=== PATIENT | female | born 1990 | race Caucasian/White ===

== ENCOUNTER → 2019-10-31 | Outpatient (CLI) | payer MEDICAID ==
--- NOTE | 2019-10-31 17:00 | Diagnostic Imaging Report ---
PROCEDURE: US OB SINGLE FETUS <14 WKS. TECHNIQUE: Multiple Real-time grayscale images were obtained over the gravid uterus in various projections. INDICATION: Encounter to determine viability of . COMPARISON: None available. FINDINGS: There is a gestational sac with normal morphology appropriately positioned in the uterus near the level of the fundus. There is small region of mixed echogenicity encompassing less than 10% of the superior gestational sac which could represent a very small perigestational hemorrhage/subchorionic hemorrhage. A yolk sac and embryo are both identified. Based on crown-rump length, the estimated gestational age is 9 weeks and 2 days. heart rate is 185 BPM. The right ovary is normal in appearance. The left ovary is not visualized due to surrounding bowel gas. No free pelvic fluid. IMPRESSION: Single live intrauterine with an average ultrasound age of 9 weeks 1 day. This is concordant with the LMP. Dictated by: Dictated on workstation # [id number]
== END ==
LOC: RAD 15:16
PROVIDERS: ATTEND Obstetrics & Gynecology
DX: O36.80X0 Pregnancy with inconclusive fetal viability, not applicable or unspecified (principal); Z3A.09 9 weeks gestation of pregnancy
CPT/HCPCS: 76801

== ENCOUNTER → 2020-01-17 | Outpatient (CLI) | payer MEDICAID ==
--- NOTE | 2020-01-17 13:41 | Diagnostic Imaging Report ---
INDICATION: survey. TECHNIQUE: Multiple real-time grayscale images were obtained over the gravid uterus. COMPARISON: 10/31/2019. FINDINGS: There is a single live fetus in a breech presentation. heart rate was recorded at 146 bpm. Placenta is posterior and fundal. Amniotic fluid index is 14.4 cm. Cervical length is 3.9 cm. survey demonstrates kidneys, bladder and stomach to be unremarkable. brain is unremarkable. There is a four-chamber heart. There is a three-vessel cord with normal insertion. spine is unremarkable. Biometrical measurements are as follows: Biparietal 4.76 cm, age 20 weeks 3 days. Head circumference 17.55 cm, age 20 weeks 1 days. Abdominal circumference 15.05 cm, age 20 weeks 3 days. Femur length 3.31 cm, age 20 weeks 3 days. Sonographic estimate age: 20 weeks 3 days. Sonographic estimated date of delivery: 06/02/2020. Estimated Weight: 345 gm (+/- 50 gm). LMP percentile: 38%. heart rate: 146 beats per minute. number: 1 of 1. IMPRESSION: Single live IUP 20-21 weeks gestational age showing normal interval growth when compared with prior exam. No complicating features are detected. Dictated by: Dictated on workstation # [id number]
== END ==
LOC: RAD 12:00
PROVIDERS: ATTEND Nurse Practitioner Women's Health
DX: Z34.92 Encounter for supervision of normal pregnancy, unspecified, second trimester (principal); Z3A.20 20 weeks gestation of pregnancy
CPT/HCPCS: 76805

== ENCOUNTER 2020-05-25 20:10 | Inpatient (IN) | payer MEDICAID ==
[~2020-05-25] VITALS: Ht 170.2 cm; Wt 62.0 kg
[2020-05-25] MEDS ORDERED: LIDOCAINE 1% INJ 20 ML 20 ML VIAL INJ PRN (20:30)
[2020-05-25] MEDS ORDERED: MINERAL OIL CONCENTRATE 99.9% 15 ML UDC TOP PRN (20:30)
[2020-05-25] MEDS ORDERED: D5 LR IV SOLUTION 1,000 ML IV ONE (21:07)
[2020-05-25 21:13] LABS: BASOPHILS % (AUTO) 0 % (0-10); EOSINOPHILS % (AUTO) 0 % (0-10); HEMATOCRIT 35 % (35-52); HEMOGLOBIN 11.9 g/dL (11.5-16.0); LYMPHOCYTES # (AUTO) 1.4 10^3/uL (1.0-4.0); LYMPHOCYTES % (AUTO) 12 % (12-44); MEAN CORPUSCULAR HEMOGLOBIN 30 pg (25-34); MEAN CORPUSCULAR HGB CONC 34 g/dL (32-36); MEAN CORPUSCULAR VOLUME 90 fL (80-99); MEAN PLATELET VOLUME 10.2 fL (9.0-12.2); MONOCYTES # (AUTO) 0.8 10^3/uL (0.0-1.0); MONOCYTES % (AUTO) 7 % (0-12); NEUTROPHILS # (AUTO) 9.7 10^3/uL (1.8-7.8); NEUTROPHILS % (AUTO) 81 % (42-75); PLATELET COUNT 192 10^3/uL (130-400)
[2020-05-25] MEDS: D5 LR IV SOLUTION 1,000 ML IV SCH (21:19)
[2020-05-25] MEDS ORDERED: OXYTOCIN PRE-MIX DRIP 500 ML IV ONE (21:28)
[2020-05-25 21:44] VITALS: BP 120/60
[2020-05-25] MEDS ORDERED: PREN1TAB79 PO (21:54)
[2020-05-25] MEDS: CATHETER FLUSH 10 ML SYR IV SCH (22:08)
[2020-05-25 22:20] VITALS: BP 113/56
[2020-05-25 22:26] LABS: BILIRUBIN,URINE NEGATIVE (NEGATIVE); CLARITY,URINE CLEAR; COLOR,URINE YELLOW; GLUCOSE, URINE (UA) NEGATIVE (NEGATIVE); KETONES,URINE NEGATIVE (NEGATIVE); LEUKOCYTE ESTERASE ,URINE NEGATIVE (NEGATIVE); NITRITE,URINE NEGATIVE (NEGATIVE); PH,URINE 7.5 (5-9); PROTEIN,URINE NEGATIVE (NEGATIVE)
[2020-05-25 22:34] LABS: BACTERIA,URINE NEGATIVE /HPF; RENAL EPITHELIAL CELLS,URINE 0-2 /HPF
[2020-05-25] MEDS ORDERED: BUTORPHANOL INJ 2 MG/ML (STADOL) VIAL ONE (23:10)
[2020-05-25 23:12] VITALS: BP 92/50
[2020-05-26] VITALS (31 sets, daily range): BP systolic 93–147; BP diastolic 50–76
[2020-05-26] MEDS ORDERED: ONDANSETRON 4 MG/2 ML (SDV) Z0FRAN ONE (02:28)
[2020-05-26] MEDS ORDERED: ONDANSETRON 4 MG/2 ML (SDV) Z0FRAN IVP ONE (02:45)
[2020-05-26] MEDS: D5 LR IV SOLUTION 1,000 ML IV SCH (03:23)
[2020-05-26] MEDS ORDERED: fentaNYL 2 mcg/ml BUPIVA 0.125 100 ML ONE (04:06)
--- NOTE | 2020-05-26 05:09 | History & Physical-OB ---
OB - Chief Complaint & HPI Date/Time Date of Admission: Date of Admission: May 25, 2020 at 21:13 Date seen by a Provider: May 26, 2020 Time Seen by a Provider: 05:00 Chief Complaint/History OB-Reason for Admission/Chief: Onset of Labor Hx : 4 Hx Para: 3 Expected Date of Delivery: Jun 02, 2020 Gestational Age in Weeks: 38 Gestational Age in Days: 6 Admission Nurse Assessment Rev: Yes History of Labs O+/- Rub I VDRL NR HIV - HBsAG - GBS - Other Presents with complaint of contractions. Planned induction on 05/26/20. Actively jason. on admission. Admitted for labor. anticipate Peds - De Allergies and Home Medications Allergies Coded Allergies: acetaminophen (Verified Allergy, Unknown, Itching, 05/25/20) oxycodone (Verified Allergy, Unknown, Itching, 05/25/20) Home Medications Vit W-Ca,Fe,FA(<1 mg) 1 Each Tablet, 1 EACH PO DAILY, (Reported) Patient Home Medication List Home Medication List Reviewed: Yes OB - History Hx of Present Care: Yes Ultrasounds: Normal mid trimester US Obstetrical Complications: None Medical Complications: None Information Induced Hypertension: No Maternal Gestational Diabetes: No Hemorrhage: No Obstetrical History Hx : 4 Hx Para: 3 Hx Termination: No Hx Multiple Gestation: No Hx Ectopic : No Hx Stillbirth: No Hx Complication: No Hx Induced Hypertens: No Hx Maternal Gestational Diabet: No Hx Hemorrhage: No Delivery History Hx Dystocia: No Hx Forceps Assisted Delivery: No Hx Vacuum Extraction Assisted: No Hx Placenta Abnormality: No Hx Distress: No Hx Large For Gestational Age I: No Hx Small for Gestational Age I: No Hx Section: No Hx Vaginal Delivery Post C-Sec: No Hx Blood Disorders: No Patient Past Medical History NC Social History/Family History Alcohol Use: Denies Use Recreational Drug Use: No Smoking Cessation: Never smoker Immunizations Hepatitis A: No Hepatitis B: Yes Tetanus Booster (TDap): Unknown (declined during ) Rubella: immune RPR/VDRL: Negative GBS Status: Negative HBsAG: Negative OB - Admission Exam Physical Exam Vitals: Vital Signs 05/25/20 05/26/20 05/26/20 21:44 00:10 03:10 Temp 36.0 Pulse 80 Resp 18 B/P (MAP) 93/55 (68) Pulse Ox 97 O2 Delivery Room Air HEENT: NCAT Heart: Rhythm Normal Lungs: Clear Abdomen: Gravid Extremities: Normal Reflexes: Normal Cervical Dilatation: 4cm Effacement: 75% Station: -2 Membranes: Intact Heart Rate: 140's Accelerations: Accelerations Present Decelerations: No Decelerations Short Term Variability: Present Alf Variability: Average (6-25) Contractions on Admission: < 5 Minutes Apart Labs Laboratory Tests Test 05/25/20 20:45 05/25/20 21:30 05/25/20 22:10 Range/Units White Blood Count 12.0 H 4.3-11.0 10^3/uL Red Blood Count 3.92 3.80-5.11 10^6/uL Hemoglobin 11.9 11.5-16.0 g/dL Hematocrit 35 35-52 % Mean Corpuscular Volume 90 80-99 fL Mean Corpuscular Hemoglobin 30 25-34 pg Mean Corpuscular Hemoglobin Concent 34 32-36 g/dL Red Cell Distribution Width 13.0 10.0-14.5 % Platelet Count 192 130-400 10^3/uL Mean Platelet Volume 10.2 9.0-12.2 fL Immature Granulocyte % (Auto) 0 % Neutrophils (%) (Auto) 81 H 42-75 % Lymphocytes (%) (Auto) 12 12-44 % Monocytes (%) (Auto) 7 0-12 % Eosinophils (%) (Auto) 0 0-10 % Basophils (%) (Auto) 0 0-10 % Neutrophils # (Auto) 9.7 H 1.8-7.8 10^3/uL Lymphocytes # (Auto) 1.4 1.0-4.0 10^3/uL Monocytes # (Auto) 0.8 0.0-1.0 10^3/uL Eosinophils # (Auto) 0.0 0.0-0.3 10^3/uL Basophils # (Auto) 0.0 0.0-0.1 10^3/uL Immature Granulocyte # (Auto) 0.1 0.0-0.1 10^3/uL Urine Color YELLOW Urine Clarity CLEAR Urine pH 7.5 5-9 Urine Specific [place] 1.010 L 1.016-1.022 Urine Protein NEGATIVE NEGATIVE Urine Glucose (UA) NEGATIVE NEGATIVE Urine Ketones NEGATIVE NEGATIVE Urine Nitrite NEGATIVE NEGATIVE Urine Bilirubin NEGATIVE NEGATIVE Urine Urobilinogen 0.2 < = 1.0 MG/DL Urine Leukocyte Esterase NEGATIVE NEGATIVE Urine RBC (Auto) NEGATIVE NEGATIVE Urine RBC NONE /HPF Urine WBC NONE /HPF Urine Squamous Epithelial Cells 5-10 /HPF Urine Renal Epithelial Cells 0-2 /HPF Urine Crystals NONE /LPF Urine Bacteria NEGATIVE /HPF Urine Casts NONE /LPF Urine Mucus NEGATIVE /LPF Urine Culture Indicated CULTURE PENDING OB - Assessment/Plan/Diagnosis Assessment Assessment: active labor Admission Dx Active labor 38 6/7 week Admission Status: Inpatient Order (span 2 midnights) Reason for Inpatient Admission: labor Plan Plan: Expectant Management DINESH MONTIEL DO May 26, 2020 05:09
[2020-05-26] MEDS ORDERED: fentaNYL INJECTION 100 MCG/2 ML AMP ONE (05:24)
[2020-05-26] MEDS: CATHETER FLUSH 10 ML SYR IV SCH (05:39)
[2020-05-26] MEDS ORDERED: LACTATED RINGERS 1,000 ML IV SCH (05:45)
[2020-05-26] MEDS ORDERED: fentaNYL 2 mcg/ml BUPIVA 0.125 100 ML IV SCH (06:15)
[2020-05-26] MEDS ORDERED: NALOXONE 0.4 MG/ML 1 ML (NARCAN) VIAL IV PRN ×3 (06:15→06:30)
[2020-05-26] MEDS ORDERED: LACTATED RINGERS 1,000 ML IV ONE ×2 (06:15→06:30)
[2020-05-26] MEDS ORDERED: diphenhydrAMINE 50 MG/ML INJ (BENADRYL) IV PRN (06:30)
[2020-05-26] MEDS ORDERED: ONDANSETRON 4 MG/2 ML (SDV) Z0FRAN IV PRN (06:30)
[2020-05-26] MEDS ORDERED: EPIDURAL (fentaNYL 2 MCG/ML BUPIVA 0.125%)100 ML BAG EPI PRN (06:30)
[2020-05-26] MEDS ORDERED: METOCLOPRAMIDE INJ 10 MG/2 ML (REGLAN) IV PRN (06:30)
[2020-05-26] MEDS ORDERED: BENZOCAINE/MENTHOL (DERMOPLAST) 60 ML CAN TP PRN (07:00)
[2020-05-26] MEDS ORDERED: TETANUS,DIPTH,PERTUSS P/F (BOOSTRIX) 0.5 ML VIAL IM ONE (07:00)
[2020-05-26] MEDS ORDERED: PRENATAL VITAMIN 1 EA TAB PO SCH (07:00)
[2020-05-26] MEDS ORDERED: OXYTOCIN PRE-MIX DRIP 500 ML IV SCH (07:00)
[2020-05-26] MEDS ORDERED: FERROUS SULF 325 MG (IRON) TAB PO SCH (07:00)
[2020-05-26] MEDS ORDERED: WITCH HAZEL(TUCKS) 40 EA JAR TOP PRN (07:00)
[2020-05-26] MEDS ORDERED: MEASLES,MUMPS,RUBELLA 1 EA INJ SQ ONE (07:00)
--- NOTE | 2020-05-26 07:07 | OB Labor & Delivery Record ---
Vag Delivery Note Vag Delivery Note Date of Delivery: 05/26/20 Preoperative Diagnosis: Wang Wang is a 29 /Para 4 / 3, Gestational Age 39 weeks, spontaneous labor Postoperative Diagnosis: Same Surgeon: DINESH MONTIEL Anesthesia: epidural Delivery Type: vaginal Findings: Viable male , apgars pending, weight pending Lacerations: none Intact placenta with 3 vessel cord. No nuchal cord, body cord or shoulder dystocia Estimated Blood Loss: 150 ml Complications: None Condition: Stable Description of Procedure: The patient is a 29 year old female who presented in spontaneous labor. she was scheduled for induction today. She was admitted and informed consent was obtained. Her labor course was remarkable for stadol 2 mg x 1 at 2300 (approximately). She progressed to approximately 7 cm and requested epidural which was placed. Then had AROM approximately 549 cm. There was bloody fluid. She progressed to complete dilatation and began to push. Prior to delivery the strip was reassuring with occasional early decelerations just prior to delivery. She was then set up for delivery. The 's head was delivered atraumatically in the SERGEI position. She pushed for two contractions only. The shoulders and remainder of the 's body were then delivered without difficulty. Upon delivery, the head was held below the level of the perineum and the mouth and nares were bulb suctioned. The cord was doubly clamped and cut and the was handed off to the pediatric staff. An intact placenta with 3-vessel cord delivered via Hip[place] and there was found to be minimal bleeding.~ Vigorous fundal massage was performed and the fundus was found to be firm. IV oxytocin was given. Examination of the vagina and perineum revealed no laceration.. Following the delivery, sponge, instrument and needle counts were correct. Mom and baby were both in stable condition in the labor suite. Baby was not vigorous at . See RN notes for details. APGARS are pending. Vitals - Labs Vital Signs - I&O Vital Signs Date Time Temp Pulse Resp B/P (MAP) Pulse Ox O2 Delivery O2 Flow Rate FiO2 05/26/20 05:52 88 18 117/76 (90) 98 Room Air 05/26/20 05:46 88 18 110/59 (76) 99 Room Air 05/26/20 05:41 76 18 103/53 (70) 98 Room Air 05/26/20 05:38 72 18 103/52 (69) 98 Room Air 05/26/20 05:35 79 18 108/56 (73) 99 Room Air 05/26/20 05:31 79 18 117/67 (84) 99 Room Air 05/26/20 05:28 89 20 111/59 (76) 98 Room Air 05/26/20 05:25 36.8 102 20 111/55 (73) 98 Room Air 05/26/20 05:20 93 20 110/57 (74) 98 Room Air 05/26/20 05:17 84 20 121/60 (80) 98 Room Air 05/26/20 05:14 101 20 130/60 (83) 97 Room Air 05/26/20 05:03 102 18 113/56 (75) Room Air 05/26/20 04:45 80 18 125/58 (80) Room Air 05/26/20 03:10 80 18 93/55 (68) Room Air 05/26/20 01:50 97 18 111/56 (74) Room Air 05/26/20 00:10 36.0 106 18 147/65 (92) Room Air 05/25/20 23:12 100 18 92/50 (64) Room Air 05/25/20 22:20 84 18 113/56 (75) Room Air 05/25/20 21:44 36.2 95 18 97 Room Air I & O 05/26/20 07:00 Intake Total 2000 ml Balance 2000 ml Labs Laboratory Tests 05/25/20 20:45: White Blood Count 12.0H, Red Blood Count 3.92, Hemoglobin 11.9, Hematocrit 35, Mean Corpuscular Volume 90, Mean Corpuscular Hemoglobin 30, Mean Corpuscular Hemoglobin Concent 34, Red Cell Distribution Width 13.0, Platelet Count 192, Mean Platelet Volume 10.2, Immature Granulocyte % (Auto) 0, Neutrophils (%) (Auto) 81H, Lymphocytes (%) (Auto) 12, Monocytes (%) (Auto) 7, Eosinophils (%) (Auto) 0, Basophils (%) (Auto) 0, Neutrophils # (Auto) 9.7H, Lymphocytes # (Auto) 1.4, Monocytes # (Auto) 0.8, Eosinophils # (Auto) 0.0, Basophils # (Auto) 0.0, Immature Granulocyte # (Auto) 0.1 2/15/21 21:30: 05/25/20 22:10: Urine Color YELLOW, Urine Clarity CLEAR, Urine pH 7.5, Urine Specific [place] 1.010L, Urine Protein NEGATIVE, Urine Glucose (UA) NEGATIVE, Urine Ketones NEGATIVE, Urine Nitrite NEGATIVE, Urine Bilirubin NEGATIVE, Urine Urobilinogen 0.2, Urine Leukocyte Esterase NEGATIVE, Urine RBC (Auto) NEGATIVE, Urine RBC NONE, Urine WBC NONE, Urine Squamous Epithelial Cells 5-10, Urine Renal Epithelial Cells 0-2, Urine Crystals NONE, Urine Bacteria NEGATIVE, Urine Casts NONE, Urine Mucus NEGATIVE, Urine Culture Indicated CULTURE PENDING DINESH MONTIEL DO May 26, 2020 07:07
[2020-05-26] MEDS: IBUPROFEN 600 MG (MOTRIN) TAB PO SCH ×2 (12:54→19:57)
[2020-05-26] MEDS ORDERED: CATHETER FLUSH 10 ML SYR IV SCH (14:00)
[2020-05-26] MEDS ORDERED: ACETAMINOPHEN 500 MG TAB (TYLENOL) PO SCH (14:00)
[2020-05-26] MEDS ORDERED: IBUP-844 PO (17:46)
[2020-05-26] MEDS ORDERED: ACET-93 PO (17:46)
--- NOTE | 2020-05-26 17:48 | Discharge Inst-Women's Service ---
Discharge Inst-Women's Serv Depart Medication/Instructions New, Converted or Re-Newed RX: Call to Patients Pharmacy Final Diagnosis labor 39 weeks gestatiom Problems Reviewed?: Yes Consults/Follow Up Additional Follow Up: Yes (2-3 weeks pp exam and 6 week pp wxam) Activity Activity: Activity as Tolerated Driving Instructions: You May Drive NO SMOKING: NO SMOKING Nothing Inside Vagina: No Douching, No [place], No Tampons Diet Discharge Diet: No Restrictions Symptoms to Report to : Swelling Increased, Bleeding Excessive, Pain Increased, Fever Over 101 Degrees F, Vaginal Bleeding Increase, Cramps in Feet or Legs, Vaginal Discharge Foul For Any Problems or Questions: Contact Your Physician DINESH MONTIEL DO May 26, 2020 17:48
[2020-05-26] MEDS: DOCUSATE SODIUM 100 MG (COLACE) CAP PO SCH ×2 (19:48→19:57)
--- NOTE | 2020-05-27 09:41 | Anesthesia-Regional Post-Op ---
Regional Patient Condition Mental Status: Alert, Oriented x3 Circulation: Same as Pre-Op Headache: Absent Sensation: Full Recovery Motor Block: Absent Post Op Complications Complications None Follow Up Care/Instructions Patient Instructions None needed. Anesthesia/Patient Condition Patient is doing well, no complaints, stable vital signs, no apparent adverse anesthesia problems. No complications reported per nursing. JACOB ROBERTSON CRNA May 27, 2020 09:41
== END 2020-05-26 20:15 | disposition home or self-care (01) | DRG 807 ==
LOC: LDRP 20:10 → WSo 20:10 → LDRP 21:13
PROVIDERS: ADMIT Obstetrics & Gynecology; ATTEND Obstetrics & Gynecology
PROC: 10E0XZZ Delivery of Products of Conception, External Approach (ICD-10-PCS; principal; 2020-05-26)
PROC: 10907ZC Drainage of Amniotic Fluid, Therapeutic from Products of Conception, Via Natural or Artificial Opening (ICD-10-PCS; 2020-05-26)
DX: O80 Encounter for full-term uncomplicated delivery (principal); Z37.0 Single live birth; Z3A.38 38 weeks gestation of pregnancy; Z20.822 Contact with and (suspected) exposure to COVID-19
CPT/HCPCS: 36415; 81000; 85025; 86850; 86900; 86901; 87088; 87635

== ENCOUNTER → 2021-01-25 | Outpatient (CLI) | payer MEDICAID ==
[~2021-01-25] MED LIST: ACET-93 PO; IBUP-844 PO; PREN1TAB79 PO
== END ==
LOC: CARD 15:00
PROVIDERS: ATTEND Pediatrics
DX: M95.4 Acquired deformity of chest and rib (principal); R00.2 Palpitations
CPT/HCPCS: 93306